=== PATIENT | female | born 1935 | race Hispanic/Latino ===

== ENCOUNTER 2024-01-09 23:33 | Inpatient (IN) | payer SELFPAY ==
[~2024-01-09] VITALS: Ht 152.4 cm; Wt 61.1 kg
--- NOTE | 2024-01-10 01:09 | ERN ---
General Chief Complaint: Mechanical Fall Stated Complaint: FALL Time Seen by MD: 23:48 History of Present Illness Initial Comments 89-year-old female with past medical history debility comes in today with left elbow pain patient apparently slipped while going up her daughter steps. Patient fell on outstretched arm and suffered pain in her left elbow. Patient comes in with increased swelling and pain in her left elbow and right knee. Allergies: Coded Allergies: No Known Allergies (Unverified Allergy, Unknown, 01/09/24) Past Medical History Past Medical History: Anxiety, Hypertension Past Surgical History: Appendectomy, Pacer/AICD, Other Surgical History Other: RT KNEE, LEFT ELBOW ROS Dictation Constitutional: Negative for fever,chills, and weight loss Eyes: Negative for injury, pain,redness, and discharge ENT: Negative for injury,pain or swelling Cardiovascular: Negative for chest pain, palpitations, and edema Respiratory: Negative for shortness of breath, cough, and wheezing, Abdomen/GI: Negative for abdominal pain, nausea, vomiting, diarrhea, and constipation Back: Negative for injury and pain : Negative for injury, bleeding and discharge MS/Extremity: Pain in the right knee and left elbow Skin: Negative for rash, and discoloration Neuro: Negative for headache, weakness, numbness, tingling, and seizure Psych: Negative for suicide ideation, homicidal ideation, and hallucinations Physical Exam Physical Exam Dictation General: awake, alert, NAD Head/Face: Normocephalic, atraumatic Eyes: PERRL, EOMI, vision at baseline ENT: oral cavity clear, TMs clear, no signs of infection Neck: Trachea midline, supple, Cardiovascular: RRR, normal S1/S2, No MRGs, no JVD Respiratory: CTAB, no respiratory distress, No rales or wheezes Abdomen: Soft, non-tender, non-distended, normal bowel sounds, no guarding or rebound. Skin: Warm, dry, normal turgor, no rash MS/Extremity: Pain and swelling in the left arm, effusion of the right knee Neuro: COAx4, GCS 15 Psych: Normal behavior, mood, and affect normal MDM Films show a medial epicondyle avulsion then will need to be brought in for evaluation by Orthopedics. Patient will be admitted. Case was discussed with the orthopedic physician Dr. Jean-Baptiste MDM: Differential diagnosis: Mechanical fall Rationale: Tests considered and ordered secondary to shared decision making include: labs, ECG and radiology Previous outside records reviewed: Old ER visits. Risk of complication and/or morbidity or mortality of patient management: None Medications-Per medication reconciliation Need for hospitalization: Patient does meet criteria for hospitalization. Need for emergency major/minor surgery: No There are no social concerns with this patient. Prescription drug management Prescriptions will include symptomatic care Patient's prior external medical records from other ER visits were reviewed by me as indicated. Prior testing and results from previous visits were reviewed. Prior tests were taken into account with medical decision making and resource utilization, independent historian/historians were used to obtain complete medical history. I independently interpreted the test that were performed, results were reviewed by me and considered findings on radiology if ordered. Medical management and examination interpretation discussions were had by me with other qualified healthcare professionals as indicated for the patient's care. ED Course Orders Procedure Category Date Status Time Knee 4+Vws Rt RAD 01/09/24 Taken 23:37 Elbow Comp 3+Vws Lt RAD 01/09/24 Taken 23:37 Humerus 2+Vws Lt RAD 01/09/24 Taken 23:37 Vital Signs Date Time Temp Pulse Resp B/P (MAP) Pulse Ox O2 Delivery O2 Flow Rate FiO2 01/09/24 23:51 98.1 60 18 146/72 98 Room Air* 0 21 01/09/24 23:35 97.9 65 16 176/74 98 Room Air DX & DISP Disposition: Inpatient Departure Impression: Primary Impression: Avulsion fracture of medial epicondyle of humerus Condition: Stable MYRANDA HINDS MD Jan 10, 2024 01:09
[2024-01-10] MEDS: morPHINE 4 MG SYG IVP ONE (01:19)
[2024-01-10] MEDS ORDERED: hydrALAZine 20MG/ML VIAL IV PRN (01:30)
[2024-01-10] MEDS ORDERED: ondanSETRON 4MG INJ IVP PRN (01:30)
[2024-01-10] MEDS ORDERED: LACTULOSE 20 GM/30 ML UDCUP PO PRN (01:30)
[2024-01-10] MEDS ORDERED: doCUSate SODIUM 100 MG CAP PO PRN (01:30)
[2024-01-10] MEDS ORDERED: acetaMINOPHEN 650 MG SUPPOSITORY RC PRN (01:30)
--- NOTE | 2024-01-10 01:32 | HP ---
[facility] HISTORY AND PHYSICAL Date of Service: Jan 10, 2024 Time of Service: 01:15 Attending/supervising physicians: Dr. Monreal and Dr. Ignacio Diaz HISTORY OF PRESENT ILLNESS: Mrs. Baeza is a 89-year-old female with past medical history hypertension, anxiety, s/p pacemaker/AICD presented to [facility] ED for evaluation of left elbow pain. The patient reported that she slipped while going up her daughter steps. Patient fell on outstretched arm and suffered pain in her left elbow. Due to increased swelling and pain to her left elbow and right knee patient presented to the emergency department. The patient denies being dizzy, having chest pain, shortness of breath, any other problem or concern prior to the fall injury. The patient reports she has had a previous fall which required surgery to her left elbow and her right knee. ED physician reports x-ray impression is medial epicondyle avulsion and request patient be admitted by the [facility] team. ED physician reports he spoke to Dr. Jean-Baptiste, orthopedic surgeon who request patient be admitted to the hospital, agrees to see patient as consult, and we will see patient tomorrow for evaluatio n of possible surgery. The patient was admitted under the [facility] team for medical management and orthopedic evaluation of the medial epicondyle avulsion s/p fall. I went to assess patient at bedside in ED 11. The patient appeared comfortable, breathing was even and unlabored, in no distress. I informed the patient of diagnostics, and plan of care (no labs done in ED). The patient verbalizes understanding and is in agreement with the plan. Plan and assessment are listed below. REVIEW OF SYSTEMS 12-point ROS reviewed with patient. All pertinent positives mentioned above. Otherwise negative, non-pertinent, or noncontributory. Past Medical History: Anxiety, Hypertension Past Surgical History: Appendectomy, Pacer/AICD, right knee surgery and left elbow surgery s/p fall Past social history: Denied alcohol, tobacco, or drug use. Coded Allergies: No Known Allergies (Unverified Allergy, Unknown, 01/09/24) PHYSICAL EXAM GENERAL APPEARANCE: The patient is awake, alert, and oriented, in no acute c ardiopulmonary distress. NEUROLOGICAL: Cranial nerves II-XII grossly intact. Motor is 5/5 in bilateral upper and lower extremities proximal to distal. No sensory deficits. HEENT: Face is symmetric. Pupils are equal and reactive. Extraocular movements are intact. NECK: Supple. No JVD. No thyromegaly. No submental, submandibular, pre- /postauricular, occipital or supraclavicular lymphadenopathy. CHEST: Normal chest expansion. No Telemetry. LUNGS: Absence of any rales, rhonchi or any wheezing. CARDIOVASCULAR: Regular. S1 and S2 normal. No appreciable rubs, murmurs or gallops. ABDOMEN: Soft, nontender, and nondistended. There is no rebound, voluntary guarding, or rigidity. : Deferred. No Barber. EXTREMITIES: Range of motion limited on the left upper extremity due to discomfort. Sling is in place. No clubbing and no cyanosis. Peripheral pulses and capillary refills WNL. SKIN: No skin breakdown. Vital Sign (Last 24 Hours) 01/09/24 23:51 Temp 98.1 Pulse 60 Resp 18 B/P (MAP) 146/72 Pulse Ox 98 O2 Delivery Room Air* O2 Flow Rate 0 FiO2 21 LABS: Current Medications Medications (Trade) Dose Ordered Sig/Candy Route PRN Reason Start Time Stop Time Status Last Admin Dose Admin Acetaminophen (TYLenol 325MG TAB) 650 mg Q6H PRN PO FEVER/MILD PAIN LEVEL 1-3 01/10/24 01:30 02/09/24 01:29 Acetaminophen (TYLenol 650MG SUPPOSITORY) 650 mg Q6H PRN RC FEVER / MILD PAIN 1-3 IF NPO 01/10/24 01:30 02/09/24 01:29 Docusate Sodium (COLace 100MG CAP) 100 mg BID PRN PO CONSTIPATION 01/10/24 01:30 02/09/24 01:29 Hydralazine HCl (APRESOLine 20MG INJ) 10 mg Q2H PRN IV SBP GREATER THAN 160 01/10/24 01:30 02/09/24 01:29 Insulin Human Regular (humuLIN R 100 UNIT/ML 3ML) INSULIN SLIDING SCAL... ACHS SQ 01/10/24 07:30 02/09/24 07:29 Lactated Ringer's 1,000 ml @ 75 mls/hr [id number] IV 01/10/24 01:30 02/09/24 01:29 Lactulose (Constulose 20gm/ 30ml Udcup) 20 gm Q6H PRN PO CONSTIPATION 01/10/24 01:30 02/09/24 01:29 Ondansetron HCl (zoFRAN 4MG INJ) 4 mg Q6H PRN IVP NAUSEA/VOMITING 01/10/24 01:30 02/09/24 01:29 Temazepam (restORIL 15 MG CAP) 15 mg HS PRN PO INSOMNIA/SLEEP 01/10/24 01:30 02/09/24 01:29 DIAGNOSTICS / RADIOLOGY: [ ] ASSESSMENT: Avulsion fracture of medial epicondyle of a left humerus s/p slip and fall Uncontrolled hypertension Anxiety Prior history of a right elbow surgery and right knee surgery, s/p pacemaker/AICD PLAN: Admit the patient to medical floor with telemetry monitoring. P.r.n. medications for: Pain management, nausea, vomiting, diarrhea ED consulted with orthopedic surgeon who plans to see patient as consult tomorrow and evaluate for need of surgery. Keep NPO for now. LR at 75 mL/hour. Reconcile home medications once available. Monitor renal and liver function. Monitor electrolytes and treat accordingly. DVT and GI prophylaxis. Reconcile home medications once available. Blood pressure checks every4 hours and p.r.n.. Glucometer checks. A.m. labs: CBC, BNP, Mag, phos, TSH, A1c, PT PTT, INR, type and screen. ADVANCED CARE PLANNING 1. Which of the following were discussed? Hospice Care - No Therapeutic options - Yes Advance Directives - Yes Other discussions - 2. Discussed with who? Patient 3. Voluntary nature of this service was explained to the patient? Yes 4. Amount of time spent - ___ over 35 minute ____ 5. Reviewed by Physician? (if this service was performed by NPP) Yes ADDENDUM: ATTENDING PHYSICIAN ATTESTATION: I have seen and discussed this patient with the midlevel and I agree with their plan. See my addendum for updates to the medical plan MD JAI Galarza LUCIA M [employer] MACHINE OPERATOR Jan 10, 2024 01:32 YINKA MONREAL MD Jan 11, 2024 11:09
[2024-01-10] MEDS: LACTATED RINGERS 1000ML 1,000 ML IV SCH (01:38)
[2024-01-10 02:50] LABS: APPEARANCE,URINE CLEAR (CLEAR); BILIRUBIN,URINE NEGATIVE (NEGATIVE); COLOR,URINE COLORLESS (YELLOW); GLUCOSE, URINE (UA) NEGATIVE (NEGATIVE); KETONES,URINE NEGATIVE (NEGATIVE); LEUKOCYTE ESTERASE ,URINE 250 Leu/uL (NEGATIVE); NITRATE,URINE NEGATIVE (NEGATIVE); OCCULT BLOOD,URINE NEGATIVE (NEGATIVE); PROTEIN,URINE NEGATIVE (NEGATIVE); UROBILINOGEN,URINE 0.2 mg/dL (0.2-1.0)
[2024-01-10 02:56] LABS: ADD UA MICROSCOPIC YES
[2024-01-10 02:58] LABS: BACTERIA,URINE FEW /HPF (None Seen); RBC,URINE 0-1 /HPF (0-1); SQUAMOUS EPITHELIAL CELL,UR RARE /HPF (0-2)
[2024-01-10] MEDS ORDERED: ENAL-89 PO (03:09)
[2024-01-10] MEDS ORDERED: ALPR0.255 PO (03:09)
[2024-01-10] MEDS: acetaMINOPHEN 325 MG TAB PO PRN (03:13)
[2024-01-10 03:55] VITALS: O2SAT 97
[2024-01-10 04:00] VITALS: BP 157/45; PULSE 66; RESP 20; TEMP 98.1
--- NOTE | 2024-01-10 04:06 | NUR ---
nursing pm note received report from JANET Chapin. Patient is in room 1.Daughter at bedside. plan of care discussed with them and they verbalized understanding. Home medications entered. Patient uses the bedpan to urinate, but prefers a brief in case of incontinent accidents. The patient and daughter discussed about DNR and daughter signed the form. The ER doctor spoke with dr. hurst about consult. she is npo. call light within reach, will continue to monitor patient.
[2024-01-10] MEDS: INSULIN humuLIN R 100 UNIT/ML 3ML SQ SCH (05:38)
[2024-01-10 07:48] LABS: BASOPHILS # (AUTO) 0.05 K/uL (0.00-0.20); BASOPHILS % (AUTO) 0.6 % (0.0-5.0); EOSINOPHILS # (AUTO) 0.09 K/uL (0.00-0.70); HEMATOCRIT 40.5 % (36-48); IMMATURE GRANULOCYTE ABSOLUTE 0.04 K/uL (0-1); LYMPHOCYTES # (AUTO) 2.5 K/uL (1.0-4.8); LYMPHOCYTES % (AUTO) 27.6 % (21.0-51.0); MEAN CORPUSCULAR HEMOGLOBIN 27.5 pg (27.0-33.0); MEAN CORPUSCULAR HGB CONC 32.8 g/dL (32.0-36.0); MEAN CORPUSCULAR VOLUME 83.9 fL (79-99); MONOCYTES # (AUTO) 0.7 K/uL (0.1-1.0); MONOCYTES % (AUTO) 7.6 % (3.0-13.0); NEUTROPHILS # (AUTO) 5.7 K/uL (1.8-7.7); NEUTROPHILS % (AUTO) 62.8 % (40.0-77.0); PLATELET COUNT (AUTO) 255 K/uL (130-400); RED BLOOD CELL COUNT(AUTO) 4.83 MIL/uL (4.00-5.50); RED CELL DISTRIBUTION WIDTH 14.5 % (11.0-15.5); WHITE BLOOD COUNT (AUTO) 9.1 K/uL (4.8-10.8)
[2024-01-10 08:20] LABS: PROTHROMBIN TIME 10.8 SEC (9.6-11.6)
[2024-01-10 08:22] LABS: CREATININE 0.8 mg/dL (0.5-1.0); POTASSIUM 3.9 mmol/L (3.5-5.1)
[2024-01-10 08:30] LABS: B-TYPE NATRIURETIC PEPTIDE 102 pg/mL (0-100)
[2024-01-10 08:35] LABS: ALBUMIN 2.9 g/dL (3.5-5.0); BILIRUBIN,TOTAL 0.3 mg/dL (0.2-1.0); HEMOGLOBIN A1C 5.7 % (4.0-6.0); PHOSPHORUS 3.3 mg/dL (2.5-4.9); THYROID STIMULATING HORMONE 3.89 uIU/mL (0.36-3.74)
--- NOTE | 2024-01-10 08:40 | HMCIMG ---
Exam Type: HUMERUS 2+VWS LT, ELBOW COMP 3+VWS LT Clinical Information: FALL Comparison: None Findings and impression: Medial condylar comminuted displaced fracture. Overlying soft tissue swelling. Hemarthrosis. Osteopenia. No other abnormalities.
--- NOTE | 2024-01-10 08:41 | HMCIMG ---
Exam Type: KNEE 4+VWS RT Clinical Information: FALL Comparison: None Findings: The bone examination is unremarkable. No fractures or dislocations are seen. No radiopaque foreign bodies are noted. Soft tissues are preserved. IMPRESSION: Normal examination.
[2024-01-10] MEDS ORDERED: 0.9%NACL 50ML IV SCH (11:30)
[2024-01-10] MEDS: ZOSYN 3.375GM +NS 50ML IVPB SCH (11:33)
[2024-01-10] MEDS: morPHINE 2 MG SYG IVP PRN (13:19)
[2024-01-10 17:45] VITALS: O2SAT 97
--- NOTE | 2024-01-10 17:45 | NUR ---
pt transferred from ER via stretcher pt awake alert orient left upper extremity in sling pulse present left radial cap refill less than 2 sec fingers warm to touch family members present at bedside
[2024-01-10 18:12] VITALS: BP 157/68; PULSE 61; RESP 18; TEMP 97.8
[2024-01-10] MEDS ORDERED: ALPRAZolam 0.25 MG TABLET PO PRN (19:00)
[2024-01-10 19:15] VITALS: O2SAT 95
[2024-01-10 20:00] VITALS: BP 138/65; PULSE 59; RESP 17; TEMP 98.2
--- NOTE | 2024-01-10 21:48 | CONS ---
ORTHOPEDIC CONSULTATION CHIEF COMPLAINT: Severe left elbow pain. HISTORY OF PRESENT ILLNESS: This 89-year-old female tripped and fell, landing hard on her left elbow. She had quite a bit of pain. She also injured her knee. She was brought to the Emergency Room where she was diagnosed to have an avulsed medial epicondyle of her elbow. They placed her in a long arm posterior splint and I was called for consultation. PAST MEDICAL HISTORY: Positive for hypertension, anxiety and placement of a pacemaker. PAST SURGICAL HISTORY: Positive for appendectomy, pacemaker, right knee surgery and left elbow surgery years ago. PHYSICAL EXAMINATION: GENERAL: A well-developed adult female appearing stated age of 89 years. She is alert, pleasant, cooperative during the exam. She is accompanied by her family members, which are 3. EXTREMITIES: Motor and sensory intact to the radial, ulnar and median nerves of her left upper extremity but has a little bit of numbness in her thumb and index finger. She has an old left wrist injury. She is completely sensory intact in flexion at the ring and little fingers. DIAGNOSTIC DATA: Radiographs showed a comminuted avulsion fracture of the medial epicondyle with significant displacement. X-rays of her right knee, AP, lateral and oblique views show no acute bony abnormalities. ASSESSMENT: Avulsion fracture of the medial epicondyle of her left elbow. PLAN: The patient is right handed. She states she is in a lot of pain in her elbow whenever she tries to move. We will discuss again tomorrow the idea of open reduction and internal fixation of the medial epicondyle. We are not going to put her n.p.o. this evening. TID: [id number] RECEIPT: [id number]
[2024-01-10] MEDS: TEMAZepam 15 MG CAPSULE PO PRN (22:08)
[2024-01-10] MEDS: ENALAPRIL MALEATE 10 MG TABLET PO SCH (22:08)
[2024-01-11] VITALS (7 sets, daily range): BP systolic 128–153; BP diastolic 54–65; PULSE 60–61; RESP 16–20; TEMP 98.1–98.8; O2SAT 93
[2024-01-11 03:51] LABS: MEAN CORPUSCULAR HEMOGLOBIN 27.9 pg (27.0-33.0); MEAN CORPUSCULAR HGB CONC 32.6 g/dL (32.0-36.0); MEAN CORPUSCULAR VOLUME 85.5 fL (79-99); RED BLOOD CELL COUNT(AUTO) 4.56 MIL/uL (4.00-5.50); RED CELL DISTRIBUTION WIDTH 14.7 % (11.0-15.5); WHITE BLOOD COUNT (AUTO) 6.8 K/uL (4.8-10.8)
[2024-01-11 04:08] LABS: CREATININE 0.8 mg/dL (0.5-1.0); MAGNESIUM 1.9 mg/dL (1.80-2.40); PHOSPHORUS 3.9 mg/dL (2.5-4.9); POTASSIUM 3.9 mmol/L (3.5-5.1)
--- NOTE | 2024-01-11 09:25 | NUR ---
DCP: HOME[facility] met with pt and daughter Carmen Longo at bedside. Per daughter, they are from [facility], here visiting pt's daughter Sierra Longo Shree [phone]. Daughter states they were set to return to [place] when pt fell and was brought to Er. Prior to admission, pt was primary caregiver for with Alzheimer's. Pt anxious to return home to. Pt uses no DME or in home care services for herself. PCP is [place]. DCP to daughter's until she can return to [place] Addendum: 01/11/24 at 0932 by HANSEL HOLLOWAY Amended: Links added.
--- NOTE | 2024-01-11 11:12 | PN ---
[facility] PROGRESS NOTE Date of Service: Jan 11, 2024 Time of Service: 11:10 SUBJECTIVE: 01/10 patient seen at bedside, no acute events overnight. She reports her pain is controlled, she has no complaints at this time. She has a medial comminuted condylar fracture. She was assessed by Orthopedic surgery yesterday who will return today for another reassessment. She may need surgical intervention, we will follow up with their recommendation. We will continue current care. REVIEW OF SYSTEMS 12-point ROS reviewed with patient. All pertinent positives mentioned above. Otherwise negative, non-pertinent, or noncontributory. PHYSICAL EXAM GENERAL APPEARANCE: The patient is awake, alert, and oriented, in no acute cardiopulmonary distress. NEUROLOGICAL: Cranial nerves II-XII grossly intact. Motor is 5/5 in bilateral upper and lower extremities proximal to distal. No sensory deficits. HEENT: Face is symmetric. Pupils are equal and reactive. Extraocular movements are intact. NECK: Supple. No JVD. No thyromegaly. No submental, submandibular, pre- /postauricular, occipital or supraclavicular lymphadenopathy. CHEST: Normal chest expansion. No Telemetry. LUNGS: Absence of any rales, rhonchi or any wheezing. CARDIOVASCULAR: Regular. S1 and S2 normal. No appreciable rubs, murmurs or gallops. ABDOMEN: Soft, nontender, and nondistended. There is no rebound, voluntary guarding, or rigidity. : Deferred. No Barber. EXTREMITIES: Range of motion limited on the left upper extremity due to discomfort. Sling is in place. No clubbing and no cyanosis. Peripheral pulses and capillary refills WNL. SKIN: No skin breakdown. Vital Signs (last 8hr) Date Time Temp Pulse Resp B/P (MAP) Pulse Ox O2 Delivery O2 Flow Rate FiO2 01/11/24 08:00 98.1 60 18 153/63 95 Room Air 21 01/11/24 04:00 98.4 60 17 140/60 95 Room Air LABS: Laboratory: Test 01/11/24 05:17 01/11/24 03:46 01/10/24 07:34 01/10/24 06:30 Range/Units Whole Blood Glucose 97 70-110 MG/DL White Blood Count 6.8 # 4.8-10.8 K/uL Red Blood Count 4.56 4.00-5.50 MIL/uL Hemoglobin 12.7 12.0-16.0 g/dL Hematocrit 39.0 36-48 % Mean Corpuscular Volume 85.5 79-99 fL Mean Corpuscular Hemoglobin 27.9 27.0-33.0 pg Mean Corpuscular Hemoglobin Concent 32.6 32.0-36.0 g/dL Red Cell Distribution Width 14.7 11.0-15.5 % Platelet Count 238 130-400 K/uL Mean Platelet Volume 9.2 7.5-10.5 fL Nucleated Red Blood Cells 0.0 0.0-0.19 % Sodium Level 145 136-145 mmol/L Potassium Level 3.9 3.5-5.1 mmol/L Chloride Level 109 101-111 mmol/L Carbon Dioxide Level 29 21-32 mmol/L Blood Urea Nitrogen 7 7-18 mg/dL Creatinine 0.8 0.5-1.0 mg/dL Glomerular Filtration Rate Calc 70 >90 mL/min Random Glucose 103 70-105 mg/dL Total Calcium 8.2 L 8.5-10.1 mg/dL Phosphorus Level 3.9 2.5-4.9 mg/dL Magnesium Level 1.90 1.80-2.40 mg/dL Immature Granulocyte % (Auto) 0.4 0-1 % Neutrophils (%) (Auto) 62.8 40.0-77.0 % Lymphocytes (%) (Auto) 27.6 21.0-51.0 % Monocytes (%) (Auto) 7.6 3.0-13.0 % Eosinophils (%) (Auto) 1.0 0.0-8.0 % Basophils (%) (Auto) 0.6 0.0-5.0 % Neutrophils # (Auto) 5.7 1.8-7.7 K/uL Lymphocytes # (Auto) 2.5 1.0-4.8 K/uL Monocytes # (Auto) 0.7 0.1-1.0 K/uL Eosinophils # (Auto) 0.09 0.00-0.70 K/uL Basophils # (Auto) 0.05 0.00-0.20 K/uL Absolute Immature Granulocyte (auto 0.04 0-1 K/uL Prothrombin Time 10.8 9.6-11.6 SEC Prothromb Time International Ratio 1.00 0.85-1.15 Activated Partial Thromboplast Time 28.0 26.3-35.5 SEC Hemoglobin A1c 5.7 4.0-6.0 % Estimated Average Glucose (eAG) 117 70-126 mg/dL Total Bilirubin 0.3 0.2-1.0 mg/dL Aspartate Amino Transf (AST/SGOT) 18 10-37 U/L Alanine Aminotransferase (ALT/SGPT) 10 L 12-78 U/L Alkaline Phosphatase 62 50-136 U/L B-Type Natriuretic Peptide 102 H 0-100 pg/mL Total Protein 6.0 6.0-8.3 g/dL Albumin 2.9 L 3.5-5.0 g/dL Thyroid Stimulating Hormone (TSH) 3.89 H 0.36-3.74 uIU/mL Troponin I High Sensitivity 6 4-50 ng/L Test 01/10/24 02:41 Range/Units Urine Color COLORLESS YELLOW Urine Appearance CLEAR CLEAR Urine pH 5.0 5.0-8.0 Urine Specific [place] 1.005 1.001-1.031 Urine Protein NEGATIVE NEGATIVE mg/dL Urine Glucose (UA) NEGATIVE NEGATIVE mg/dL Urine Ketones NEGATIVE NEGATIVE mg/dL Urine Occult Blood NEGATIVE NEGATIVE Urine Nitrate NEGATIVE NEGATIVE Urine Bilirubin NEGATIVE NEGATIVE mg/dL Urine Urobilinogen 0.2 0.2-1.0 mg/dL Urine Leukocyte Esterase 250 H NEGATIVE Hanna/uL Urine RBC 0-1 0-1 /HPF Urine WBC 6-10 H 0-1 /HPF Urine Squamous Epithelial Cells RARE 0-2 /HPF Urine Bacteria FEW None Seen /HPF Current Medications Medications (Trade) Dose Ordered Sig/Candy Route PRN Reason Start Time Stop Time Status Last Admin Dose Admin Acetaminophen (TYLenol 325MG TAB) 650 mg Q6H PRN PO FEVER/MILD PAIN LEVEL 1-3 01/10/24 01:30 02/09/24 01:29 01/10/24 03:13 650 MG Acetaminophen (TYLenol 650MG SUPPOSITORY) 650 mg Q6H PRN RC FEVER / MILD PAIN 1-3 IF NPO 01/10/24 01:30 02/09/24 01:29 Alprazolam (XANax 0.25MG) 0.25 mg HS PRN PO anxiety 01/10/24 19:00 02/09/24 18:59 Docusate Sodium (COLace 100MG CAP) 100 mg BID PRN PO CONSTIPATION 01/10/24 01:30 02/09/24 01:29 Enalapril Maleate (Vasotec) 10 mg HS PO 01/10/24 21:00 02/09/24 20:59 01/10/24 22:08 10 MG Hydralazine HCl (APRESOLine 20MG INJ) 10 mg Q2H PRN IV SBP GREATER THAN 160 01/10/24 01:30 02/09/24 01:29 Insulin Human Regular (humuLIN R 100 UNIT/ML 3ML) INSULIN SLIDING SCAL... ACHS SQ 01/10/24 07:30 02/09/24 07:29 Lactated Ringer's 1,000 ml @ 75 mls/hr [id number] IV 01/10/24 01:30 02/09/24 01:29 01/11/24 06:26 75 MLS/HR Lactulose (Constulose 20gm/ 30ml Udcup) 20 gm Q6H PRN PO CONSTIPATION 01/10/24 01:30 02/09/24 01:29 Morphine Sulfate (morPHINE 2MG SYG) 2 mg Q4H PRN IVP SEVERE PAIN (7-10) 01/10/24 01:30 01/17/24 01:29 01/10/24 13:19 2 MG Ondansetron HCl (zoFRAN 4MG INJ) 4 mg Q6H PRN IVP NAUSEA/VOMITING 01/10/24 01:30 02/09/24 01:29 Piperacillin Sod/ Tazobactam Sod (Zosyn 3.375gm+NS 50ml) 3.375 gm Q12H IVPB 01/10/24 11:30 01/20/24 11:29 01/10/24 22:12 3.375 GM Sodium Chloride (NS 50ml) 50 ml AD IV 01/10/24 11:30 01/10/24 11:11 DC Temazepam (restORIL 15 MG CAP) 15 mg HS PRN PO INSOMNIA/SLEEP 01/10/24 01:30 02/09/24 01:29 01/10/24 22:08 15 MG DIAGNOSTICS / RADIOLOGY: [ ] ASSESSMENT: Avulsion fracture of medial epicondyle of a left humerus s/p slip and fall Uncontrolled hypertension Anxiety Prior history of a right elbow surgery and right knee surgery, s/p pacemaker/AICD PLAN: Continue medical floor with telemetry monitoring. P.r.n. medications for: Pain management, nausea, vomiting, diarrhea Orthopedic surgery consulted, appreciate recommendations DVT and GI prophylaxis. Disposition: Pending orthopedic surgery recommendations YINKA MONREAL MD Jan 11, 2024 11:12
--- NOTE | 2024-01-11 21:32 | NUR ---
RBS 119 mg/dL No insulin coverage needed at this time per insulin sliding scale. Addendum: 01/12/24 at 0134 by GAVIN MASTERSON RN RN Correct time - [id number]
--- NOTE | 2024-01-11 21:32 | NUR ---
Pain Patient complaint of pain score of 3/10 to right knee. Tylenol 325mg 2 tablets given by mouth at this time. Patient also requesting Temazepam 15mg capsule for insomnia, medication given at this time by mouth as well.
[2024-01-12] VITALS: BP 111/74; PULSE 60; RESP 20; TEMP 98.3
[2024-01-12 04:00] VITALS: BP 141/70; PULSE 64; RESP 20; TEMP 98
[2024-01-12 04:07] LABS: BASOPHILS # (AUTO) 0.04 K/uL (0.00-0.20); BASOPHILS % (AUTO) 0.6 % (0.0-5.0); EOSINOPHILS # (AUTO) 0.22 K/uL (0.00-0.70); EOSINOPHILS % (AUTO) 3.2 % (0.0-8.0); HEMATOCRIT 38.6 % (36-48); IMMATURE GRANULOCYTE ABSOLUTE 0.04 K/uL (0-1); LYMPHOCYTES # (AUTO) 2.2 K/uL (1.0-4.8); LYMPHOCYTES % (AUTO) 31.9 % (21.0-51.0); MEAN CORPUSCULAR HGB CONC 33.4 g/dL (32.0-36.0); MEAN CORPUSCULAR VOLUME 83.7 fL (79-99); MONOCYTES # (AUTO) 0.7 K/uL (0.1-1.0); NEUTROPHILS # (AUTO) 3.7 K/uL (1.8-7.7); NEUTROPHILS % (AUTO) 53.7 % (40.0-77.0); PLATELET COUNT (AUTO) 249 K/uL (130-400); RED BLOOD CELL COUNT(AUTO) 4.61 MIL/uL (4.00-5.50); RED CELL DISTRIBUTION WIDTH 14.6 % (11.0-15.5); WHITE BLOOD COUNT (AUTO) 6.9 K/uL (4.8-10.8)
[2024-01-12 04:16] LABS: CREATININE 0.8 mg/dL (0.5-1.0); MAGNESIUM 1.9 mg/dL (1.80-2.40); PHOSPHORUS 3.8 mg/dL (2.5-4.9); POTASSIUM 3.7 mmol/L (3.5-5.1)
--- NOTE | 2024-01-12 05:00 | NUR ---
Potassium/Magnesium protocols Call placed to [employer] commissioner answering service. Spoke with Sepideh DE DIOS. Advised patient needed potassium and magnesium protocols. As per Grecia DE DIOS okay to place protocols in place. Orders noted and carried out.
[2024-01-12] MEDS ORDERED: PoTASSium chl 10% ELIXIR 20MEQ 20 MEQ/15 ML UDCUP PO PRN (05:30)
[2024-01-12] MEDS ORDERED: PoTASSium chloRIDE 10MEQ/100ML 100 ML IV PRN (05:30)
--- NOTE | 2024-01-12 05:34 | NUR ---
RBS 101 mg/dL No insulin coverage needed at this time per insulin sliding scale.
[2024-01-12] MEDS: MAGNESIUM 2GM PREMIX 50ML 50 ML IV PRN (05:44)
--- NOTE | 2024-01-12 05:44 | NUR ---
Potassium 3.7 mmol/L, Magnesium 1.9 mg/dL Patient's electrolytes covered with Potassium 10 mEq tablet by mouth per hypokalemia protocol and Magnesium 2GM/100 mL IV at 25cc/hr as per magnesium protocol.
[2024-01-12] MEDS: PoTASSium chloRIDE 20MEQ ER 20 MEQ ERTAB PO PRN (05:45)
[2024-01-12 08:00] VITALS: BP 139/61; PULSE 60; RESP 16; TEMP 97.6
[2024-01-12 08:09] VITALS: O2SAT 93
[2024-01-12 12:00] VITALS: BP 144/70; PULSE 63; RESP 17; TEMP 98
--- NOTE | 2024-01-12 12:26 | DS ---
Discharge Summary Hospital Course Summary: 89-year-old female with past medical history hypertension, anxiety, s/p pacemaker/AICD presented to [facility] [place] ED for evaluation of left elbow pain. The patient reported that she slipped while going up her daughter steps. Patient fell on outstretched arm and suffered pain in her left elbow. Due to increased swelling and pain to her left elbow and right knee patient presented to the emergency department. The patient reports she has had a previous fall which required surgery to her left elbow and her right knee. ED physician reported x- ray impression is medial epicondyle avulsion and request patient be admitted by the [facility] team. Orthopedic surgery was consulted and evaluated the patient. They recommended conservative management as the fractured fragment is too small for fixation and she is experiencing no neurovascular compromise. He recommended splinting with a long arm posterior splint which was placed and she was discharged home. . Staff Anesthesiologist(s): Orthopedic Surgery Procedure(s): Exam Type: KNEE 4+VWS RT Clinical Information: FALL Comparison: None Findings: The bone examination is unremarkable. No fractures or dislocations are seen. No radiopaque foreign bodies are noted. Soft tissues are preserved. IMPRESSION: Normal examination. Exam Type: HUMERUS 2+VWS LT, ELBOW COMP 3+VWS LT Clinical Information: FALL Comparison: None Findings and impression: Medial condylar comminuted displaced fracture. Overlying soft tissue swelling. Hemarthrosis. Osteopenia. No other abnormalities. Exam Type: HUMERUS 2+VWS LT, ELBOW COMP 3+VWS LT Clinical Information: FALL Comparison: None Findings and impression: Medial condylar comminuted displaced fracture. Overlying soft tissue swelling. Hemarthrosis. Osteopenia. No other abnormalities. Assessment/Plan: Avulsion fracture of medial epicondyle of a left humerus s/p slip and fall Uncontrolled hypertension Anxiety Prior history of a right elbow surgery and right knee surgery, s/p pacemaker/AICD Discharge Instructions: Follow up with PCP in 3-7 days Follow up with orthopedic surgery, Dr. Jean-Baptiste, next week Home Medications: Reported Medications Enalapril Maleate (Enalapril Maleate) 10 Mg Tablet, 10 MG PO HS, TAB 01/10/24 Alprazolam (Alprazolam) 0.25 Mg Tablet, 1 TAB PO HS PRN for anxiety for 30 Days, #60 TAB 0 Refills 01/10/24 Continued Medications: Enalapril Maleate (Enalapril Maleate) 10 Mg Tablet 10 MG PO HS, TAB Discontinued Medications: Alprazolam (Alprazolam) 0.25 Mg Tablet 1 TAB PO HS PRN for anxiety for 30 Days, #60 TAB 0 Refills Time spent arranging discharge: 31-60 minutes YINKA MONREAL MD Jan 12, 2024 12:26
--- NOTE | 2024-01-12 15:26 | NUR ---
DC PLAN HOME PLAN TO DC HOME AND RETURN TO [place]. PATIENT SELF PAY AT THIS TIME. Addendum: 01/12/24 at 1538 by RAFAEL KELLOGG RN CM Amended: Links added.
[2024-01-12 16:00] VITALS: BP 132/61; PULSE 61; RESP 16; TEMP 98.2
--- NOTE | 2024-01-12 16:00 | NUR ---
DISCHARGE PT PIV DC'D PT FAMILY AT BEDSIDE PT HAD NO FURTHER QUESTIONS AT TIME OF DISCHARGE PT FAMILY GATHERED AND TOOK ALL BELONGINGS
== END 2024-01-12 17:15 | disposition home or self-care (01) | DRG 563 ==
LOC: EDH 23:33 → EDHIP 23:34 → 3AH 01-10 17:40
PROVIDERS: ADMIT Internal Medicine; ATTEND Internal Medicine
DX: S42.442A Displaced fracture (avulsion) of medial epicondyle of left humerus, initial encounter for closed fracture (principal); W01.0XXA Fall on same level from slipping, tripping and stumbling without subsequent striking against object, initial encounter; I10 Essential (primary) hypertension; F41.9 Anxiety disorder, unspecified; Y93.89 Activity, other specified; Y92.89 Other specified places as the place of occurrence of the external cause; Y99.8 Other external cause status; Z79.899 Other long term (current) drug therapy; Z90.49 Acquired absence of other specified parts of digestive tract; Z95.5 Presence of coronary angioplasty implant and graft
CPT/HCPCS: 36415; 73060; 73080; 73564; 80048; 80053; 81001; 82948; 83036; 83735; 83880; 84100; 84443; 84484; 85025; 85027; 85610; 85730; 86850; 86900; 86901; 87086; 99285; G0378; J2270; J2543; J3475